=== PATIENT | male | born 1950 | race Caucasian/White ===

== ENCOUNTER 2017-01-29 09:10 | Emergency (ER) | payer OTHER, BC ==
[~2017-01-29] VITALS: Ht 177.8 cm; Wt 83.1 kg
[2017-01-29 09:13] VITALS: TEMP 35; Ht 177.8 cm; Wt 83.1 kg
[2017-01-29] MEDS ORDERED: MECL1TAB42 PO (09:38)
[2017-01-29] MEDS ORDERED: LORA-741 PO (09:38)
[2017-01-29] MEDS ORDERED: ONDA8TAB62 SL (09:40)
[2017-01-29] MEDS ORDERED: ONDA4TAB10 SL (09:40)
[2017-01-29] MEDS ORDERED: FINA5TAB PO (09:41)
[2017-01-29] MEDS ORDERED: ONDANSETRON 8 MG/54 ML D5W IV STA (09:42)
[2017-01-29] MEDS ORDERED: SODIUM CHLORIDE 0.9% 1000ML 1,000 ML IV STA (09:42)
[2017-01-29] MEDS ORDERED: LORAZEPAM 2 MG/ML 1 ML VIAL IV STA (09:42)
[2017-01-29] MEDS ORDERED: HYDR-4079 PO (09:42)
[2017-01-29] MEDS ORDERED: MECLIZINE HCL 25 MG TAB PO STA (09:42)
[2017-01-29 09:48] LABS: BASO % 0.3 %; BASO ABS # 0.02 K/uL (0-0.2); COMPLETE YES; EOS % 1.3 %; HEMATOCRIT 45.8 % (42-52); IG% 0.4 %; LYMPH % 8.4 %; LYMPH ABS # 0.65 K/uL (1.2-3.4); MEAN CELL VOLUME 90.5 fL (80-100); MEAN CORPUSCULAR HEMOGLOBIN 30.8 pg (25-34); MEAN CORPUSCULAR HGB CONC 34.1 g/dl (32-36); MEAN PLATELET VOLUME 9.8 fL (7.4-10.4); MONO % 5.2 %; NEUT % 84.4 %; PLATELET COUNT 170 K/uL (130-400); RED BLOOD COUNT 5.06 M/uL (4.7-6.1); WHITE BLOOD COUNT 7.75 K/uL (4.8-10.8)
[2017-01-29] MEDS ORDERED: IBUP-1428 PO (09:54)
[2017-01-29 10:08] LABS: BUN/CREATININE RATIO 18.3 (10-20); CALCIUM 8.9 mg/dl (8.5-10.1); CREATININE 1.2 mg/dl (0.60-1.40); POTASSIUM 4.1 mmol/L (3.5-5.1)
--- NOTE | 2017-01-29 12:26 | EMERGENCY ROOM VISIT NOTE ---
History Report prepared by Cory: Maral Schwartz Under the Supervision of: Dr. Denzel Brower D.O. First contact with patient: 09:32 Chief Complaint: VERTIGO Stated Complaint: VERTIGO History of Present Illness The patient is a 67 year old male who presents to the Emergency Room with complaints of constant dizziness beginning this morning. The patient states that he has a history of vertigo and had it last 1 month ago. He reports that this feels similar but is slightly more severe this time. He notes that he took Meclizine last time and it worked well. The patient reports that he previously lived in [place] for over 30 years and has just moved to [place]. He complains of the room spinning, nausea, and vomiting. The patient notes that he takes Finasteride, Lorazepam, and Advil. Source of History: patient Onset: this morning Position: other (global) Quality: other (dizziness) Timing: constant Associated Symptoms: + nausea, + vomiting Note: Pt complains of room spinning. Review of Systems See HPI for pertinent positives & negatives. A total of 10 systems reviewed and were otherwise negative. Past Medical & Surgical Medical Problems: (1) Vertigo Family History No pertinent family history stated. Social History Smoking Status: Never Smoker Alcohol Use: none Marital Status: Housing Status: lives with family Occupation Status: retired Current/Historical Medications Scheduled Finasteride (Proscar), 5 MG PO DAILY Lorazepam (Ativan), 1-2 TABS PO Q8H Ondasetron Odt (Zofran Odt), 4 MG SL Q8H Scheduled PRN Hydrocodone/Acetaminophen 10MG/325MG ([place] 10MG/325MG), 1 TAB PO TID PRN for Pain Ibuprofen (Motrin), 800 MG PO QPM PRN for Pain Meclizine Hcl (Meclizine Hcl), 1 TAB PO TID PRN for VERTIGO Allergies Coded Allergies: No Known Allergies (Unverified , 01/29/17) Physical Exam Vital Signs Date Time Temp Pulse Resp B/P Pulse Ox O2 Delivery O2 Flow Rate FiO2 01/29/17 12:30 75 16 113/68 95 Room Air 01/29/17 11:24 75 16 144/71 98 Room Air 01/29/17 11:15 88 18 101/54 95 Room Air 01/29/17 10:00 73 20 109/73 94 Room Air 01/29/17 09:31 75 01/29/17 09:13 35.0 71 18 139/88 97 Room Air Physical Exam VITAL SIGNS: were reviewed as above. GENERAL:Non-toxic in appearance. SKIN: Warm dry and pink. HEAD: Normocephalic and atraumatic. EYES: Horizontal nystagmus when looking to the right. OROPHARYNX: Is clear and moist NECK: Supple without lymphadenopathy or meningismus. LUNGS: clear. HEART: Regular rate and rhythm. ABDOMEN: Soft and nontender. EXTREMITIES: Warm and well perfused. NEUROLOGICALLY: Awake alert and oriented without focal deficit. Cranial nerves 2 -12 are intact. There is no pronator drift. Cerebellar testing is within normal limits. There is no nystagmus. There is no facial droop. Speech is clear. Vision is grossly normal. MUSCULOSKELETAL: Good muscle tone. No evidence of trauma. Medical Decision & Procedures Laboratory Results 01/29/17 09:40 Red Blood Count 5.06, Mean Corpuscular Volume 90.5, Mean Corpuscular Hemoglobin 30.8, Mean Corpuscular Hemoglobin Concent 34.1, Mean Platelet Volume 9.8, Neutrophils (%) (Auto) 84.4, Lymphocytes (%) (Auto) 8.4, Monocytes (%) (Auto) 5.2, Eosinophils (%) (Auto) 1.3, Basophils (%) (Auto) 0.3, Neutrophils # (Auto) 6.55, Lymphocytes # (Auto) 0.65, Monocytes # (Auto) 0.40, Eosinophils # (Auto) 0.10, Basophils # (Auto) 0.02 01/29/17 09:40 Test 01/29/17 09:25 01/29/17 09:40 Bedside Glucose 118 mg/dl (70-99) White Blood Count 7.75 K/uL (4.8-10.8) Red Blood Count 5.06 M/uL (4.7-6.1) Hemoglobin 15.6 g/dL (14.0-18.0) Hematocrit 45.8 % (42-52) Mean Corpuscular Volume 90.5 fL (80-100) Mean Corpuscular Hemoglobin 30.8 pg (25-34) Mean Corpuscular Hemoglobin Concent 34.1 g/dl (32-36) Platelet Count 170 K/uL (130-400) Mean Platelet Volume 9.8 fL (7.4-10.4) Neutrophils (%) (Auto) 84.4 % Lymphocytes (%) (Auto) 8.4 % Monocytes (%) (Auto) 5.2 % Eosinophils (%) (Auto) 1.3 % Basophils (%) (Auto) 0.3 % Neutrophils # (Auto) 6.55 K/uL (1.4-6.5) Lymphocytes # (Auto) 0.65 K/uL (1.2-3.4) Monocytes # (Auto) 0.40 K/uL (0.11-0.59) Eosinophils # (Auto) 0.10 K/uL (0-0.5) Basophils # (Auto) 0.02 K/uL (0-0.2) RDW Standard Deviation 42.8 fL (36.4-46.3) RDW Coefficient of Variation 13.0 % (11.5-14.5) Immature Granulocyte % (Auto) 0.4 % Immature Granulocyte # (Auto) 0.03 K/uL (0.00-0.02) Anion Gap 4.0 mmol/L (3-11) Est Creatinine Clear Calc Drug Dose 63.4 ml/min Estimated GFR () 73.1 Estimated GFR (Non- 63.1 BUN/Creatinine Ratio 18.3 (10-20) Calcium Level 8.9 mg/dl (8.5-10.1) Total Bilirubin 0.5 mg/dl (0.2-1) Direct Bilirubin 0.1 mg/dl (0-0.2) Aspartate Amino Transf (AST/SGOT) 54 U/L (15-37) Alanine Aminotransferase (ALT/SGPT) 83 U/L (12-78) Alkaline Phosphatase 98 U/L (45-117) Total Protein 6.8 gm/dl (6.4-8.2) Albumin 3.8 gm/dl (3.4-5.0) Laboratory results as stated above per my review. Medications Administered Medications (Trade) Dose Ordered Sig/Rosalinda Route Start Time Stop Time Status Last Admin Dose Admin Sodium Chloride (Nss 1000ml) 1,000 ml @ 999 mls/hr Q1H1M STAT IV 01/29/17 09:42 01/29/17 10:42 DC 01/29/17 10:37 999 MLS/HR Ondansetron HCl (Zofran 8mg Iv) 8 mg NOW STAT IV 01/29/17 09:42 01/29/17 09:45 DC 01/29/17 10:37 8 MG Meclizine HCl (Antivert Tab) 25 mg NOW STAT PO 01/29/17 09:42 01/29/17 09:45 DC 01/29/17 10:37 25 MG Lorazepam (Ativan Inj) 1 mg NOW STAT IV 01/29/17 09:42 01/29/17 09:45 DC 01/29/17 10:37 1 MG ED Course 0932: Previous medical records were reviewed. The patient was evaluated in room B7. A complete history and physical examination was performed. 0932: Ativan Inj 1mg IV, Antivert Tab 25mg, Zofran 8mg IV, Sodium Chloride 1000 ml @ 999 mls/hr IV. 1213: I reevaluated the patient. He is doing well. 1232: On reevaluation, the patient is doing better. I discussed the results and findings with the patient. He verbalized agreement of the treatment plan. The patient was discharged home. Medical Decision differential includes acute intracranial pathology, intracranial bleed, mass, anemia, electrolyte disturbance, peripheral vertigo, central vertigo, CVA, TIA, intra-abdominal pathologic such as pancreatitis, dehydration, trauma. This is a 67-year-old male who presents to the ED with a chief complaint of vertigo. The patient states that he had another episode of vertigo about a month ago. He had a CT scan of the brain and additional studies in the emergency department in [place] where he used to reside. The patient moved here recently. He has not yet established himself with a local doctor. The patient developed room spinning, nausea and vomiting this morning, similar to a month ago but less severe. His vital signs are stable. His physical exam and neurologic exam were unremarkable with the exception of some horizontal nystagmus when looking to the right. He otherwise had no focal deficits. He has not had any fevers or trauma. His CBC was normal. BUN is 22 and complete metabolic panel was unremarkable. The patient was treated with IV Zofran, IV Ativan and by mouth meclizine. He did not have any additional vomiting or significant symptoms during his ED stay. The patient was felt to be stable for discharge and outpatient follow-up. He does have a prescription for meclizine, Ativan and Zofran ODT. He was referred to neurology. He also was recommended to find a family doctor locally. Impression Primary Impression: Vertigo Scribe Attestation The scribe's documentation has been prepared under my direction and personally reviewed by me in its entirety. I confirm that the note above accurately reflects all work, treatment, procedures, and medical decision making performed by me. Departure Information Dispostion Home / Self-Care Referrals Anne-Marie Pacheco M.D. Forms HOME CARE DOCUMENTATION FORM, IMPORTANT VISIT INFORMATION, WORK / SCHOOL INSTRUCTIONS Patient Instructions ED BPV Vertigo, My [facility] Additional Instructions Take the medications you have already been prescribed as needed for symptoms. Take meclizine once every 8 hours for the next 24 hours. Follow-up with neurology. Dr Pacheco listed.
[2017-01-29 12:30] VITALS: BP 113/68; PULSE 75; O2SAT 95
== END 2017-01-29 12:54 | disposition home or self-care (01) ==
LOC: C.EDB 09:16
DX: R42 Dizziness and giddiness (principal); Z79.899 Other long term (current) drug therapy

== ENCOUNTER → 2017-06-19 | Outpatient (CLI) | payer OTHER ==
[~2017-06-19] MED LIST: FINA5TAB PO; HYDR-4079 PO; IBUP-1428 PO; LORA-741 PO; MECL1TAB42 PO; ONDA4TAB10 SL
--- NOTE | 2017-06-19 11:18 | DIAGNOSTIC IMAGING REPORT ---
R ANKLE MIN 3 VIEWS ROUTINE CLINICAL HISTORY: 67 years-old Male presenting with RIGHT ANKLE PAIN, injury 2 years ago, pain has not improved with physical therapy. TECHNIQUE: Frontal, mortise, and lateral views of the right ankle were obtained. COMPARISON: None. FINDINGS: Osteopenia may be present. Degenerative change at the ankle with chondrocalcinosis. Ankle mortise intact. No acute fracture or malalignment. Enthesophyte noted at the insertion of the Achilles tendon, which could suggest degeneration or chronic injury. IMPRESSION: 1. No acute osseous injury. 2. Degenerative changes of the ankle joint. 3. Osteopenia. Electronically signed by: Zeyad Gu M.D. 06/19/2017 11:17 AM Dictated Date/Time: 06/19/2017 11:15 AM
== END | disposition home or self-care (01) ==
LOC: C.RAD1850 10:13
PROVIDERS: ATTEND Family Medicine
DX: M19.071 Primary osteoarthritis, right ankle and foot (principal); M85.871 Other specified disorders of bone density and structure, right ankle and foot